=== PATIENT | male | born 1970 | race Two or more races ===

== ENCOUNTER → 2024-07-08 | Outpatient (CLI) | payer BC, MEDICAID, SELFPAY ==
--- NOTE | 2024-07-08 10:00 | XR_ITS ---
Examination: Transrectal prostate sonography TECHNIQUE: Transrectal sonographic images prostate Exam date and time: July 08, 2024, 1001 hours INDICATIONS: Elevated PSA on laboratory examination 3 weeks ago FINDINGS: Prostate 4.3 x 3.7 x 4.1 cm volume 33.01 cc, no prostate nodules IMPRESSION: No significant prostatomegaly, no prostate nodules
== END | disposition home or self-care (01) ==
LOC: CDIM 09:33
PROVIDERS: Referring Provider Physician Assistant; Visit Provider Physician Assistant
DX: R97.20 Elevated prostate specific antigen [PSA] (principal)
CPT/HCPCS: 76872